=== PATIENT | male | born 1950 | race Caucasian/White ===

== ENCOUNTER 2017-01-17 11:29 | Emergency (ER) | payer MEDICARE ==
--- NOTE | 2017-01-17 12:59 | RAD ---
PORTABLE CHEST: 01/17/2017 PROVIDED CLINICAL HISTORY: Cough. COMPARISON: 08/18/2016 FINDINGS: The cardiac and mediastinal silhouette is unchanged in appearance. No focal consolidation, pleural fluid, or pneumothorax apparent. IMPRESSION: No evidence for an acute cardiopulmonary process. POS: OFF
[2017-01-17 15:18] LABS: #Eosinphils 0.3 thou/uL (0.0-0.7); #Lymphocytes 0.6 thou/uL (1.20-3.40); #Monocytes 0.7 thou/uL (0.11-0.59); #Neutrophils 3.8 thou/uL (1.40-6.50); %Basophils 0.5 % (0.0-1.0); %Eosinophils 6.3 % (0.0-10.0); %Lymphocytes 11.2 % (21.0-51.0); %Monocytes 13.2 % (0.0-10.0); Hematocrit 44.8 % (42.0-52.0); Mean Platelet Volume 6.6 fL (7.4-10.4); Red Blood Cell (RBC) Count 4.57 mill/uL (4.70-6.10); White Blood Cell (WBC) Count 5.5 thou/uL (4.8-10.8)
[2017-01-17 15:24] LABS: PTT 32.1 SEC (22.9-36.1); Prothrombin Time 13.6 SEC (12.0-14.7)
[2017-01-17 15:36] LABS: Anion Gap 7 mmol/L (10-20); BUN (Urea Nitrogen) 8 mg/dL (8.4-25.7); Calc. Creatinine Clearance 0 mL/min (70-130); Calcium 9.9 mg/dL (7.8-10.44); Carbon Dioxide 29 mmol/L (23-31); Chloride 106 mmol/L (98-107); Estimated GFR-MDRD Greater than 90
[2017-01-17 15:42] LABS: Troponin I Less than 0.010 ng/mL (< 0.028)
[2017-01-17] MEDS ORDERED: Ibuprofen 200 MG TAB ONE (16:04)
--- NOTE | 2017-01-26 12:21 | EKG ---
Test Reason : Blood Pressure : / mmHG Vent. Rate : 068 BPM Atrial Rate : 068 BPM P-R Int : 144 ms QRS Dur : 094 ms QT Int : 390 ms P-R-T Axes : 064 029 046 degrees QTc Int : 414 ms Normal sinus rhythm Normal ECG Confirmed by MARYCARMEN TO MD ([id number]), editor sound CORRINE MOHAN ([id number]) on 01/26/2017 12:20:45 PM Referred By: Confirmed By:MARYCARMEN TO MD
== END 2017-01-17 16:07 | disposition home or self-care (01) ==
LOC: ERS 11:29
DX: J40 Bronchitis, not specified as acute or chronic (principal); R03.0 Elevated blood-pressure reading, without diagnosis of hypertension; G47.30 Sleep apnea, unspecified; Z79.899 Other long term (current) drug therapy
CPT/HCPCS: 36415; 71010; 80048; 82553; 84484; 85025; 85610; 85730; 93005

== ENCOUNTER 2019-02-15 11:59 | Observation (INO) | payer MEDICARE ==
[2019-02-15 12:30] LABS: #Eosinphils 0.2 thou/uL (0.0-0.7); #Lymphocytes 1.4 thou/uL (1.20-3.40); #Monocytes 0.4 thou/uL (0.11-0.59); #Neutrophils 2.5 thou/uL (1.40-6.50); %Basophils 0.9 % (0.0-1.0); %Eosinophils 5.4 % (0.0-10.0); %Lymphocytes 30.5 % (21.0-51.0); %Monocytes 9.1 % (0.0-10.0); %Neutrophils 54.1 % (42.0-75.0); Hemoglobin 13.8 g/dL (14.0-18.0); Mean Corpuscular HGB CONC 33.4 g/dL (32.0-36.0); Mean Corpuscular Hemoglobin 32.1 pg (27.0-31.0); Mean Corpuscular Volume 96.1 fL (78.0-98.0); Mean Platelet Volume 6.9 fL (7.4-10.4); Platelet Count 186 thou/uL (130-400); RBC Distribution Width 11.4 % (11.5-14.5); Red Blood Cell (RBC) Count 4.28 mill/uL (4.70-6.10); White Blood Cell (WBC) Count 4.6 thou/uL (4.8-10.8)
[2019-02-15] MEDS ORDERED: Ondansetron PF 4 MG/2 ML Vial ONE (12:38)
[2019-02-15 12:39] LABS: Bilirubin Small (Negative); Blood, Urine Large (Negative); Clarity Hazy (Clear); Glucose, Urine (Dipstick) Negative (Negative); Leukocyte Negative (Negative); Nitrite Negative (Negative); Protein, Urine (Dipstick) Trace mg/dL (Neg-Trace)
[2019-02-15] MEDS ORDERED: Meclizine HCl 25 MG TAB ONE (12:44)
[2019-02-15 12:47] LABS: Lactic Acid 1.6 mmol/L (0.5-2.2)
[2019-02-15 12:51] LABS: Amphetamine Not Detected (NotDetected); Barbiturates Screen Not Detected (NotDetected); Benzodiazepine Screen Not Detected (NotDetected); Cocaine Metabolite Screen Not Detected (NotDetected); Medtox Control Line Valid? VALID (VALID); Medtox Reader # READER 1; Methadone Not Detected (NotDetected); Methamphetamine Not Detected (NotDetected); Opiate Screen Not Detected (NotDetected); Oxycodone Screen Not Detected (NotDetected); Phencyclidine (PCP) Not Detected (NotDetected); THC/Cannabinoid Screen Not Detected (NotDetected); Tricyclic Screen Not Detected (NotDetected)
--- NOTE | 2019-02-15 12:52 | RAD ---
Chest AP view INDICATION: Confusion COMPARISON: January 17, 2017 FINDINGS: Lungs:The lungs are clear Cardiac silhouette:The cardiomediastinal silhouette appears within normal limits. Pulmonary vasculature:Normal Pleural spaces:No pleural effusion or pneumothorax is demonstrated. Upper abdomen:No abnormality seen. Osseous structures: No acute osseous abnormality. Additional findings:None. IMPRESSION: No acute cardiopulmonary abnormality.
[2019-02-15 12:56] LABS: ALT (SGPT) 17 U/L (8-55); AST (SGOT) 18 U/L (5-34); Alkaline Phosphatase 80 U/L (40-110); Anion Gap 12 mmol/L (10-20); BUN (Urea Nitrogen) 16 mg/dL (8.4-25.7); Bilirubin, Total 2.3 mg/dL (0.2-1.2); CK (CPK) 129 U/L (30-200); Calc. Creatinine Clearance 0 mL/min (70-130); Calcium 9.4 mg/dL (7.8-10.44); Carbon Dioxide 27 mmol/L (23-31); Chloride 106 mmol/L (98-107); Estimated GFR-MDRD 85; Globulin 2.7 g/dL (2.4-3.5); Glucose 160 mg/dL (80-115); Potassium 3.5 mmol/L (3.5-5.1); Protein, Total 6.7 g/dL (5.8-8.1); Sodium 141 mmol/L (136-145)
[2019-02-15 12:56] LABS: Bacteria/HPF None Seen HPF (None Seen); Squamous Epithelial 0-3 HPF (0-3); Transitional Epithelial 0-3 HPF (None Seen); WBC/HPF 0-3 HPF (0-3)
[2019-02-15 12:57] LABS: Renal Epithelial 0-3 HPF (None Seen)
--- NOTE | 2019-02-15 13:26 | CT ---
CT ANGIOGRAM OF BRAIN WITH AND WITHOUT CONTRAST: DATE: 02/15/2019 8:00 AM HISTORY: Dizziness COMPARISON: CT of the brain with and without contrast dated January 01, [address] the brain without contrast dated November 21, 2011 TECHNIQUE: Noncontrast brain CT performed. Iodinated IV contrast injected. Bolus chasing technique scan performed through the head. Coronal and sagittal 3-D MIP reconstructions. FINDINGS: NONCONTRAST CT OF BRAIN: Hemorrhage: None [place]/Infarction: None. Midline Shift: None. Hydrocephalus: None. Skull and Extracranial Soft tissues: There is an area of groundglass opacity and expansion involving the right frontal skull, overlying the right superior orbit, that is stable since the comparison in 2010 consistent with a focus of fibrous dysplasia. CTA OF THE BRAIN: Right ICA: Patent. Right MCA: Patent. Right THEO: Patent. ACOM: Patent. Left ICA: Patent. Left MCA: Patent. Left THEO: Patent. PCOMs: Patent. Vertebral arteries: Patent. Basilar Artery: Patent. ball points inspector: Patent. Incidentals: No abnormal enhancement demonstrated. There is mild mucosal thickening within the left ethmoid air cells. IMPRESSION: No acute intracranial abnormality. No hemodynamically significant stenosis, occlusion or aneurysmal dilation.
[2019-02-15] MEDS ORDERED: Iopamidol-370 76% 500 ML 1 ML ONE (13:29)
[2019-02-15] MEDS ORDERED: Aspirin Chewable 81 MG TAB ONE (13:29)
--- NOTE | 2019-02-15 13:32 | CT ---
CTA OF THE NECK WITH IV CONTRAST AND 3-D REFORMATTED IMAGING. INDICATION: Dizziness COMPARISON: None FINDINGS: Right CCA: Patent. Right ICA: Patent. Right Subclavian: Patent. Right Vertebral Artery: Patent. Left CCA: Patent. Left ICA: Patent. Left Subclavian: Patent. Left Vertebral Artery: Patent. Aerodigestive tract: Clear. Parotids/Submandibular/Thyroid glands: Normal. Lymph nodes: No pathologically enlarged lymph nodes. Lung Apices: Clear. Bones: No acute fracture or subluxation demonstrated. There is scattered degenerative and osteoarthr itic change present. Incidentals: None. IMPRESSION: 1. No hemodynamically significant stenosis, occlusion or aneurysmal formation.
[2019-02-15] MEDS ORDERED: Lorazepam 1 MG TAB PO PRN (16:06)
[2019-02-15] MEDS ORDERED: Ondansetron PF 4 MG/2 ML Vial IVP PRN (16:13)
[2019-02-15] MEDS ORDERED: Bisacodyl 10 MG SUPP PR PRN (16:13)
[2019-02-15] MEDS ORDERED: Ondansetron ODT 4 MG TAB PO PRN (16:13)
[2019-02-15] MEDS ORDERED: Calcium Carbonate 500 MG ChewTAB PO PRN (16:13)
--- NOTE | 2019-02-15 16:38 | HP ---
PRIMARY CARE PHYSICIAN: Cassi Wyatt. CHIEF COMPLAINT: Vertigo. HISTORY OF PRESENT ILLNESS: The patient is a 68-year-old male with chronic low back pain and fibromyalgia, presented to the emergency room with above complaints. Over the last 24 hours or so, the patient has not been feeling well. He had some headache last night when he went to sleep. This morning when he woke, he felt dizzy along with vertigo while he was lying in bed. The symptoms got worse when he started moving. He had 3 episodes of vomiting. The vomitus contained food, which he had eaten. He had some numbness and tingling to his right lower extremity. He denies any other weakness or sensory deficits. He was unable to ambulate due to vertigo. He denies any urine loss. Occasionally, he has tinnitus. In the emergency room, his initial vital signs showed temperature 97.8, respirations of 17, pulse rate of 77, blood pressure of 144/79 with O2 saturation 98% on room air. His CTA of the head and neck was essentially negative. He received aspirin, meclizine, Zofran with IV fluids in the emergency room. PAST MEDICAL HISTORY: 1. Fibromyalgia. 2. Chronic low back pain. 3. Benign prostatic hypertrophy. 4. GERD. PAST SURGICAL HISTORY: 1. Multiple ENT surgeries. 2. Carpal tunnel surgery. 3. Cholecystectomy. 4. Left knee surgery. 5. Cyst removal from the back. ALLERGIES: THE PATIENT IS ALLERGIC TO HYDROCODONE AND TRAMADOL. SOCIAL HISTORY: The patient currently lives at home with his family. He denies history of smoking, alcohol, or drug use. REVIEW OF SYSTEMS: All other review of systems were reviewed and were found negative. FAMILY HISTORY: Family history is positive for hypertension and diabetes mellitus type 2. He denies any premature coronary artery disease in his family. CODE STATUS: Full code. He makes his own decision with the help of his family. PHYSICAL EXAMINATION: VITAL SIGNS: As discussed above. GENERAL: A 68-year-old male, in no apparent distress. HEENT: Head, atraumatic and normocephalic. Sclerae anicteric. Moist mucous membranes. No oral lesion. NECK: Supple. No JVD. No carotid bruit. LUNGS: Clear to auscultation bilaterally. No wheezing, rales, or rhonchi. HEART: S1 and S2 present. Regular rate and rhythm. No murmur, rubs, or gallops appreciated. ABDOMEN: Soft, nontender. Bowel sounds present. No rebound or guarding. EXTREMITIES: No edema or calf tenderness. NEUROLOGY: Cranial nerves 2 through 12 are normal on examination. There was no significant nystagmus. Power was 5/5 in all extremities. [id number] test was normal. However, somewhat slow. Sensation to touch was more or less in the normal range. Gait was not assessed due to significant vertigo. Reflexes were equivocal. PSYCHIATRY: Alert, awake, and oriented x3. SKIN: Warm and dry. LYMPH NODES: No palpable lymph nodes in the neck. PERIPHERAL VASCULAR: Radial pulses palpable bilaterally. MUSCULOSKELETAL: No joint swelling or tenderness. LABORATORY FINDINGS: WBC 4.6 with hemoglobin 13.8, hematocrit 41.2, and platelets 186. Chemistry showed sodium 141, potassium 3.5, chloride 106, bicarb 27, BUN 16, creatinine 0.89, total bilirubin 2.3. Please note that the patient has chronically elevated LFTs in 1.5 to 1.6 range. Urinalysis was negative for wbc or bacteria. IMAGING STUDIES: Chest x-ray by my review was negative for infiltrate or edema. CTA of the head and neck by my review as discussed above. EKG by my review showed sinus rhythm without significant ST-T wave changes. IMPRESSION: 1. Vertigo/dizziness. Rule out cerebrovascular accident. 2. Nausea and vomiting secondary to #1. 3. Fibromyalgia. 4. Chronic kidney disease, stage 2. 5. Chronic back pain. 6. Dehydration with ketonuria. 7. Chronic anemia. 8. Leukopenia of unclear etiology. 9. Abnormal LFTs of unclear etiology. The patient has history of cholecystectomy in the past. He recently had a right upper quadrant ultrasound, which was essentially negative. PLAN: The patient will be monitored in the stroke unit as observation. We will start him on low-dose aspirin. We will get a stroke workup. We will get an echocardiogram. Gentle IV hydration. Fasting lipid profile in a.m. We will check vitamin B12 and folic acid as well. Plan of care was discussed with the patient in detail. He stated understanding. Job ID: [id number]
[2019-02-15] MEDS: Sodium Chloride 0.9% 1,000 ML IV SCH (18:39)
[2019-02-15 19:53] VITALS: BMI 21.6
[2019-02-15] MEDS ORDERED: Atorvastatin Calcium 40 MG TAB PO SCH (21:00)
[2019-02-15] MEDS ORDERED: Atorvastatin Calcium 10 MG TAB PO SCH (21:00)
[2019-02-15] MEDS ORDERED: Tamsulosin HCl 0.4 MG CAP PO SCH (21:00)
[2019-02-15] MEDS: Gabapentin 100 MG CAP PO SCH (21:36)
[2019-02-15] MEDS: Acetaminophen 325 MG TAB PO PRN (21:37)
[2019-02-16 05:28] LABS: Cardiac Risk 3.6 (Less than 4.5)
[2019-02-16] MEDS: Sodium Chloride 0.9% 1,000 ML IV SCH ×2 (05:37→11:31)
[2019-02-16] MEDS ORDERED: Cyanocobalamin (Vitamin B-12) 1,000 MCG TAB PO SCH (09:00)
[2019-02-16] MEDS ORDERED: Enoxaparin Sodium 40 MG/0.4 ML SYRINGE SC SCH ×2 (09:00)
[2019-02-16] MEDS ORDERED: Aspirin 81 mg Enteric Coated Tablet PO SCH (09:00)
[2019-02-16] MEDS: Gabapentin 100 MG CAP PO SCH (09:21)
--- NOTE | 2019-02-16 09:23 | MRI ---
MRI BRAIN WITHOUT CONTRAST: HISTORY: Dizziness CORRELATION: CT scan from 02/15/2019. FINDINGS: No restricted diffusion is seen. There are multiple foci of T2 prolongation in the periventricular wh ite matter, consistent with chronic small vessel ischemic disease. The ventricular size is appropriate and the basilar cisterns are patent. No evidence of acute infarct, acute hemorrhage, midline shift or abnormal extra-axial fluid collectio ns is seen. There are small foci of hemosiderin deposition noted in the cerebral hemispheres on the gradient echo sequences consistent with remote hemorrhage. The visualized paranasal sinuses and mastoid air cells are well-aerated. IMPRESSION: No evidence of acute intracranial process.
[2019-02-16] MEDS ORDERED: Prevnar 13-Val Conj/PF 0.5 ML SYRINGE IM ONE (09:30)
[2019-02-16] MEDS ORDERED: FLU VACC TS2019-20(65YR UP)/PF 180 MCG/0.5 ML SYRINGE IM ONE (09:30)
[2019-02-16] MEDS ORDERED: Meclizine HCl 25 MG TAB PO PRN (10:16)
[2019-02-16] MEDS: Acetaminophen 325 MG TAB PO PRN (11:34)
[2019-02-16 15:38] VITALS: BP 108/62; TEMP 97.7
--- NOTE | 2019-02-17 10:16 | DIS ---
DATE OF ADMISSION: 02/15/2019 DATE OF DISCHARGE: 02/16/2019 DISCHARGE DISPOSITION: Home. FOLLOWUP: Follow up with primary care physician, Dr. Gaby Begum in 1 week. DISCHARGE MEDICATIONS: 1. Meclizine as needed. 2. Protonix 40 mg daily. 3. Aspirin 81 mg daily. 4. Lipitor 10 mg at bedtime. 5. Tizanidine as needed. 6. Flomax 0.4 mg daily. 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 DIAGNOSTIC TESTS: MRI of the brain was negative for acute CVA. Echocardiogram showed ejection fraction of 55% to 60% with diastolic dysfunction, mild mitral regurgitation, mild tricuspid regurgitation. CT angiogram of the head and neck was essentially negative. Chest x-ray was negative for acute findings. BRIEF HOSPITAL COURSE: The patient is a 68-year-old male, who presented to the hospital with vertigo. He was admitted to the hospital to rule out posterior circulation CVA. He underwent workup as discussed above. It is unclear whether his symptoms are from peripheral vertigo versus TIA. Dizziness has significantly improved. For time being, he has been started on low-dose aspirin along with statin. His fasting lipid profile showed total cholesterol of 148, LDL of 92, triglycerides of 76, and HDL of 41. He was advised to follow up with ENT as outpatient. If this is from peripheral vertigo, then he can probably discontinue aspirin and statins if okay with the patient's primary care physician. For time being, the patient was advised to take low-dose aspirin along with low-dose statin. FINAL DIAGNOSES: 1. Vertigo/dizziness. Possibilities include peripheral vertigo versus transient ischemic attack. 2. Nausea and vomiting secondary to #1. 3. Fibromyalgia. 4. Gastroesophageal reflux disease, not responding to H2 blockers. This has been changed to PPIs. 5. Dehydration with ketonuria secondary to nausea and vomiting. 6. Chronic kidney disease, stage 2. 7. Chronic low back pain. 8. Abnormal LFTs. His total bilirubin this admission was 2.3. The patient states that he had a recent right upper quadrant ultrasound, which was negative. 9. Swallow dysfunction. PLAN: Plan was discussed with the patient in detail. He stated understanding. Job ID: [id number]
== END 2019-02-16 18:45 | disposition home or self-care (01) ==
LOC: ERS 11:59 → ERHOLD 13:55 → 2SE 19:52
PROVIDERS: ADMIT Internal Medicine; ATTEND Internal Medicine
DX: R42 Dizziness and giddiness (principal); M79.7 Fibromyalgia; K21.9 Gastro-esophageal reflux disease without esophagitis; N40.0 Benign prostatic hyperplasia without lower urinary tract symptoms; E86.0 Dehydration; R82.4 Acetonuria; N18.2 Chronic kidney disease, stage 2 (mild); D63.1 Anemia in chronic kidney disease; G89.29 Other chronic pain; M54.5 Low back pain; D72.819 Decreased white blood cell count, unspecified; R94.5 Abnormal results of liver function studies; I08.1 Rheumatic disorders of both mitral and tricuspid valves; Z79.899 Other long term (current) drug therapy; Z88.4 Allergy status to anesthetic agent; Z88.5 Allergy status to narcotic agent
CPT/HCPCS: 51701; 70496; 70498; 70551; 71045; 80053; 80061; 80306; 82550; 82607; 82746; 83605; 83735; 84484; 85025; 87040; 93005; 93306; 94760; 96361 ×3; 96372; 96374; 97139 ×3; 99285; G0378 ×3; 36415; 81003; 81015; J1650; J2405; J8597; Q9967

== ENCOUNTER 2024-12-11 08:45 | Outpatient (CLI) | payer OTHER | END 2024-12-11 08:46 | disposition home or self-care (01) | LOC: PET 08:45 | PROVIDERS: ATTEND Internal Medicine | DX: C25.3 Malignant neoplasm of pancreatic duct (principal); R39.11 Hesitancy of micturition | CPT/HCPCS: 78815; A9552 ==